=== PATIENT | male | born 1985 | race Caucasian/White ===

== ENCOUNTER 2016-05-14 08:30 | Inpatient (IN) | payer OTHER ==
--- NOTE | ~2016-05-14 | PA ---
Unit #: [id number] #: [id number] Patient: YOLANDE RODRIGUEZ [id number] [facility] [address] [place] [address] [id number] I MR#: [id number] NAME: YOLANDE RODRIGUEZ. ROOM: P184 Age: 31 Sex: M Admission Date: 05/14/2016 : 1985 Date of Assessment: 05/14/2016 Attending Physician: Fabrizio Cary M.D. Admitting Physician: Fabrizio Cary M.D. Primary Care Physician: Dakotah Alvarez Jr., M.D. PSYCHIATRIC ASSESSMENT DATE OF SERVICE 05/14/2016. INFORMANTS The patient reliable; EPS, reliable; OLOP, reliable. CHIEF COMPLAINT Alcohol use and possible overdose. HISTORY OF PRESENT ILLNESS Mr. Rodriguez is a 31-year-old man, whose family reported that he has been drinking and they suspect he may have taken an overdose of Benadryl, but he states this was just to go to sleep. He has had increasing psychosocial dysfunction and several DUIs recently. [facility] and further assessment of his depressive disorder. PAST PSYCHIATRIC HISTORY The patient denies any previous psychiatric admissions. He is currently not taking any psychiatric medications. FAMILY PSYCHIATRIC HISTORY There is a family history of depression and alcoholism on both sides of the family. SOCIAL HISTORY The patient denied any history of childhood abuse or neglect. He is a single heterosexual man, who is currently living with his family. He has 2 DUIs and a charge for failure to appear in court. He is a high-school graduate, who is currently working as a cook, but recently lost his job due to attendance issues. PAST MEDICAL HISTORY No chronic medical problems. MEDICATIONS None currently. ALLERGIES No known medication allergies. SUBSTANCE USE HISTORY As noted in history of present illness. Unit #: [id number] #: [id number] Patient: YOLANDE RODRIGUEZ MENTAL STATUS EXAMINATION Yolande presented as a disheveled man, who appeared his stated age. He was cooperative with the examination. His speech was spontaneous and easily understood. His musculoskeletal examination was calm. His mood was depressed with a congruent affect. He was alert and fully oriented. Memory and concentration were fair. Thought processes were goal directed with no active psychosis. He did endorse suicidal ideation, but had no specific plan or intent. Insight and judgment were fair. Fund of knowledge and abstraction were fair. ASSETS AND LIABILITIES The patient has supportive family and is voluntary for treatment. Liabilities include difficulty establishing and maintaining sobriety. ADMITTING DIAGNOSES AXIS I: Alcohol dependence with withdrawal, uncomplicated, F10.230. AXIS II: No diagnosis. AXIS III: None acute. AXIS IV: AXIS V: PSYCHIATRIC PLAN The patient was admitted and placed on the alcohol detox protocol. He declined initiation of antidepressant medication, but did state he was interested in substance abuse followup. He will enroll in dual diagnosis groups and activities. TREATMENT GOALS Resolution of intoxication, improvement in mood, improvement in insight, and improvement in coping skills. DISCHARGE PLANNING Follow up with [facility]. ESTIMATED LENGTH OF STAY 5 days. Dictated by... Fabrizio Cary M.D. [facility]/josé miguel TD: 06/24/2016 01:05 JOB #: [id number] Unit #: [id number] #: [id number] Patient: YOLANDE RODRIGUEZ PSYCHIATRIC ASSESSMENT Page 1 of 1 X Fabrizio Cary MD PSYCHIATRIC ASSESSMENT
--- NOTE | ~2016-05-14 | HP ---
Unit #: [id number] #: [id number] Patient: YOLANDE HERNANDEZ [id number] [place] [address] [id number] I MR#: [id number] NAME: YOLANDE HERNANDEZ. ROOM: P174 Age: 31 Sex: M Admission Date: 05/14/2016 : 1985 Attending Physician: Fabrizio Cary M.D. Admitting Physician: Fabrizio Cary M.D. Primary Care Physician: Dakotah Alvarez Jr., M.D. HISTORY AND PHYSICAL HISTORY OF PRESENT ILLNESS Yolande is a 31 year old admitted to [facility] with depression after an overdose of [id number] sleeping pills and alcohol. PAST MEDICAL HISTORY History of alcohol abuse. PAST SURGICAL HISTORY Nothing reported. ALLERGIES No known drug allergies. SOCIAL HISTORY Smokes one pack per day. Drinks alcohol frequently to excess and denies illicit drug use. FAMILY HISTORY Medically noncontributory. REVIEW OF SYSTEMS CONSTITUTIONAL: No fever or chills. HEENT: Denies any sore throat, ear pain or runny nose. CARDIOVASCULAR: Denies chest pain, irregular heart rhythm or palpitations. CHEST: Denies shortness of breath or cough. No hemoptysis. GASTROINTESTINAL: Denies nausea, vomiting, diarrhea or chronic constipation. ENDOCRINE: Denies history of increased thirst or urination. No recent significant weight loss or gain. GENITOURINARY: Denies dysuria, frequency, or hematuria. SKIN: Denies any rashes. HEMATOLOGIC: Denies history of increased bleeding or bruising. MUSCULOSKELETAL: Denies any hot, swollen joints. No generalized muscle pain. NEUROLOGIC: Denies problems with vision or speech. No frequent, severe headaches. No numbness, tingling or weakness in any extremities. Denies loss of bladder or bowel control. CURRENT MEDICATIONS 1. Milk of Magnesia p.r.n. 2. Maalox p.r.n. 3. Tylenol p.r.n. 4. Nicotine patch 14 mg q. day. Unit #: [id number] #: [id number] Patient: YOLANDE HERNANDEZ PHYSICAL EXAMINATION GENERAL: Alert, well nourished. No apparent distress. VITAL SIGNS: Blood pressure 120/72, heart rate 60, respirations 16, and temperature 98.6. WEIGHT: 138. HEIGHT: 5 feet 10 inches. SKIN: Warm and dry without rash or lesion. HEENT: Normocephalic. TMs not viewed. Oral and nasal passages clear. Conjunctivae clear. PERRLA. EOMs intact. NECK: Supple without lymphadenopathy or thyromegaly. HEART: Regular rate and rhythm without murmur. LUNGS: Clear. ABDOMEN: Soft, nontender. : Not done. EXTREMITIES: No evidence of cyanosis, clubbing or edema. Moves all without focal deficit. NEUROLOGICAL: Grossly within normal limits. Cranial Nerves: II: Visual uribe are intact. III, IV AND : Extraocular movements are intact. Pupils are equal, round and reactive to light. V: Facial sensation is grossly normal. VII: Facial movements and expression are normal. VIII: Auditory acuity grossly intact. IX, X: Uvula is midline. Phonation is normal. XI: Patient shrugs shoulders and turns head normally. XII: Tongue protrudes in the midline. Sensory and Motor Function: Sensory and motor sensation is grossly normal. Motor: moves all extremities well. Coordination: Gait is normal. Deep Tendon Reflexes: Intact. IMPRESSION Psychiatric admission. RECOMMENDATIONS PSYCHIATRIC: Per psychiatrist. MEDICAL: I see no contraindication to participate in this facility's activities. MEDICAL PROGNOSIS Good. MEDICAL CONDITION Stable. Dictated by... Dorothy Morton P.A.-C. for Francisca Douglas/emilee TD: 05/15/2016 08:24 JOB #: [id number] Unit #: [id number] #: [id number] Patient: YOLANDE HERNANDEZ HISTORY AND PHYSICAL Page 1 of 1 X Dorothy Morton HISTORY AND PHYSICAL
--- NOTE | ~2016-05-14 | DS ---
Unit #: [id number] #: [id number] Patient: YOLANDE RODRIGUEZ [id number] [facility] [address] [place] [address] [id number] MR#: [id number] NAME: YOLANDE RODRIGUEZ. ROOM: 84 Age: 31 Sex: M Admission Date: 05/14/2016 : 1985 Discharge Date: 05/16/2016 Attending Physician: Fabrizio Cary M.D. Primary Care Physician: Dakotah Alvarez Jr., M.D. DISCHARGE SUMMARY REASON FOR ADMISSION Mr. Rodriguez is a 31-year-old man who came in in an intoxicated state with increasing alcohol use and psychosocial complications of drinking including loss of job threats of loss of housing and active DUIs. He also had taken some extra hulc-bgs-qgpclly sleeping medicine but denied it was suicide attempt. However, he would not contract for safety and was admitted for stabilization. DIAGNOSTIC STUDIES LABORATORY DATA: Please see referring hospital's records. HOSPITAL COURSE Mr. Rodriguez was admitted and placed on suicide precautions and the alcohol detox protocol. After arriving Hospital he declined initiation of an antidepressant medication and had an uneventful period of inpatient detox with no delirium, confusion, disorientation or other complications. He participated appropriately in unit, groups and activities on the date of discharge he was able to contract for safety in the outpatient setting. DISCHARGE DIAGNOSIS AXIS I: Alcohol induced mood disorder. Alcohol dependence. AXIS II: No diagnosis. AXIS III: Alcohol withdrawal, resolved. INSTRUCTION TO PATIENT Follow up with AA and NA as well as community mental health. DISCHARGE MEDICATIONS None. CONDITION ON DISCHARGE Improved. PROGNOSIS Fair. DIET AND ACTIVITY Ad bambi Dictated by... Fabrizio Cary M.D. Unit #: [id number] #: [id number] Patient: YOLANDE RODRIGUEZ [facility]/raya TD: 06/24/2016 05:03 JOB #: [id number] DISCHARGE SUMMARY Page 1 of 1 X Fabrizio Cary MD X DISCHARGE SUMMARY
[~2016-05-14 08:30] MED LIST: ALB/IPRATROPIUM/1 E1 INH; ROBITUSSIN A-C S5 ML PO
== END 2016-05-16 13:00 | disposition home or self-care (01) | DRG 897 ==
LOC: P1E 08:30
PROC: HZ2ZZZZ Detoxification Services for Substance Abuse Treatment (ICD-10-PCS; principal; 2016-05-14)
DX: F10.230 Alcohol dependence with withdrawal, uncomplicated (principal); F17.210 Nicotine dependence, cigarettes, uncomplicated